=== PATIENT | female | born 1965 | race African-American/Black ===

== ENCOUNTER 2016-05-08 02:52 | Emergency (ER) | payer SELFPAY ==
[~2016-05-08] VITALS: Ht 162.6 cm; Wt 86.0 kg
[2016-05-08 03:01] VITALS: BP 156/107; PULSE 78; RESP 24; TEMP 97.7; O2SAT 100
[2016-05-08] MEDS ORDERED: SODIUM CHLOR 0.9% 1000 ML INJ 1,000 ML IV ONE (03:13)
[2016-05-08] MEDS ORDERED: SODIUM CHLORIDE 0.9% FLUSH 5 ML FLUSH IVF PRN (03:15)
[2016-05-08] MEDS ORDERED: KETOROLAC TROMETHAMINE 30 MG/ML (IVP) VIAL IVP ONE (03:15)
[2016-05-08] MEDS ORDERED: PROCHLORPERAZINE INJ 10 MG/2 ML VIAL IVP ONE (03:15)
[2016-05-08] MEDS ORDERED: diphenhydrAMINE HCL 50 MG/ML VIAL IVP ONE (03:15)
[2016-05-08 03:16] VITALS: BP 156/107; PULSE 78; RESP 18; TEMP 97.7; O2SAT 100
[2016-05-08 03:18] VITALS: RESP 18; O2SAT 100
--- NOTE | 2016-05-08 03:27 | PD ---
HPI Chief Complaint: Headache Time Seen by Provider: 03:10 Travel History International Travel<30 days: No Contact w/Intl Traveler<30days: No Traveled to known affect area: No History of Present Illness HPI The patient is a 50-year-old female with a history of recurrent migraine headaches. She complains of a headache that started 4 days ago, got better and then got worse gradually. She denies any focal neurologic change, fever but does have nausea and vomiting. She denies vomiting any blood. Her last CT scan was 2009. She does have photophobia/phonophobia. PFSH Past Medical History Diminished Hearing: No Migraines: Yes Tetanus Vaccination: Unknown Influenza Vaccination: No ?: Not Menopausal: Yes Past Surgical History Appendectomy: Yes Section: Yes Gynecologic Surgery: Yes (rso) Hysterectomy: Yes Tonsillectomy: Yes Social History Alcohol Use: Yes (SOCIALLY) Tobacco Use: No Substance Use: No Allergies-Medications (Allergen,Severity, Reaction): Coded Allergies: Morphine (Verified Allergy, Intermediate, Hives, 05/08/16) Codeine (Verified Allergy, Mild, RASH, 05/08/16) Hydrocodone (Verified Allergy, Mild, RASH, 05/08/16) Reported Meds & Prescriptions Reported Meds & Active Scripts Active No Active Prescriptions or Reported Medications Review of Systems Except as stated in HPI: all other systems reviewed are Neg Physical Exam Narrative GENERAL: Well-nourished, well-developed patient in moderate to severe distress with her headache. Her vital signs show blood pressure 156/107 with respirations 24 but the rest the vital signs are normal. SKIN: Warm and dry. No needle tracks nor wrist slash pastor are present. HEAD: Normocephalic. EYES: No scleral icterus. No injection or drainage. NECK: Supple, trachea midline. No JVD or lymphadenopathy. There is no meningismus and the patient flexes neck fully so that the chin touches chest without any hesitation. CARDIOVASCULAR: Regular rate and rhythm without murmurs, gallops, or rubs. RESPIRATORY: Breath sounds equal bilaterally. No accessory muscle use. Lungs clear to auscultation bilaterally. GASTROINTESTINAL: Abdomen soft, non-tender, nondistended. MUSCULOSKELETAL: No cyanosis, or edema. BACK: Nontender without obvious deformity. No CVA tenderness. NEUROLOGICAL: Awake and alert. Cranial nerves II through XII intact. Motor and sensory grossly within normal limits. Five out of 5 muscle strength in all muscle groups. Normal speech and gait. Data Data Last Documented VS Vital Signs Date Time Temp Pulse Resp B/P Pulse Ox O2 Delivery O2 Flow Rate FiO2 05/08/16 04:00 85 18 155/85 99 Room Air 05/08/16 03:16 97.7 Orders Complete Blood Count With Diff (05/08/16 03:13) Basic Metabolic Panel (Bmp) (05/08/16 03:13) Ecg Monitoring (05/08/16 03:13) Iv Access Insert/Monitor (05/08/16 03:13) Oximetry (05/08/16 03:13) Sodium Chloride 0.9% Flush (Ns Flush) (05/08/16 03:15) Ketorolac Inj (Toradol Inj) (05/08/16 03:15) Prochlorperazine Inj (Compazine Inj) (05/08/16 03:15) Diphenhydramine Inj (Benadryl Inj) (05/08/16 03:15) Sodium Chlor 0.9% 1000 Ml Inj (Ns 1000 M (05/08/16 03:13) Ct Brain W/O Iv Contrast(Rout) (05/08/16 03:28) Labs Laboratory Tests Test 05/08/16 03:30 White Blood Count 7.2 TH/MM3 Red Blood Count 4.81 MIL/MM3 Hemoglobin 13.6 GM/DL Hematocrit 41.5 % Mean Corpuscular Volume 86.3 FL Mean Corpuscular Hemoglobin 28.4 PG Mean Corpuscular Hemoglobin 32.9 % Concent Red Cell Distribution Width 11.9 % Platelet Count 360 TH/MM3 Mean Platelet Volume 7.4 FL Neutrophils (%) (Auto) 78.5 % Lymphocytes (%) (Auto) 16.6 % Monocytes (%) (Auto) 4.5 % Eosinophils (%) (Auto) 0.2 % Basophils (%) (Auto) 0.2 % Neutrophils # (Auto) 5.7 TH/MM3 Lymphocytes # (Auto) 1.2 TH/MM3 Monocytes # (Auto) 0.3 TH/MM3 Eosinophils # (Auto) 0.0 TH/MM3 Basophils # (Auto) 0.0 TH/MM3 CBC Comment DIFF FINAL Differential Comment Sodium Level 142 MEQ/L Potassium Level 3.5 MEQ/L Chloride Level 107 MEQ/L Carbon Dioxide Level 22.2 MEQ/L Anion Gap 13 MEQ/L Blood Urea Nitrogen 13 MG/DL Creatinine 1.10 MG/DL Estimat Glomerular Filtration 63 ML/MIN Rate Random Glucose 147 MG/DL Calcium Level 9.5 MG/DL MDM Medical Decision Making Medical Screen Exam Complete: Yes Emergency Medical Condition: Yes Medical Record Reviewed: Yes Interpretation(s) The basic metabolic profile shows a creatinine of 1.1, glucose 147 but is otherwise unremarkable. The CBC is normal. Differential Diagnosis Migraine headache, tension headache, tension/migraine combination headache, subarachnoid hemorrhageunlikely, normal pressure hydrocephalushighly unlikely Narrative Course The patient appears to have a migraine headache. Fortunately, she responded to nonnarcotic medications. The photophobia, phonophobia and severity and frequency of the headache suggest migraine headache. The CT scan did not show any abnormality. Diagnosis Primary Impression: Migraine headache Additional Instructions: The Fioricet is for when you get a future headache, take it early and sometimes this works to knock out the headache. Follow-up next week with your primary care physician. Med/Other Pt SpecificInfo: Prescription(s) given Scripts [id number]-Gipqjwth (Fioricet)50-300-40 Mg Cap1 Cap PO Q4H PRN ( HEADACHE) #30 CAP Ref 0 Prov:Chano London MD 05/08/16 Disposition: 01 DISCHARGE HOME Condition: Stable Chano London MD May 08, 2016 03:27
[2016-05-08 03:48] LABS: AUTOMATED NEUTROPHIL # 5.7 TH/MM3 (1.8-7.7); BASOPHIL % 0.2 % (0.0-2.0); EOSINOPHIL % 0.2 % (0.0-4.0); HEMATOCRIT 41.5 % (35.0-46.0); HEMO FLAGS DIFF FINAL; LYMPH % 16.6 % (9.0-44.0); LYMPHOCYTE # 1.2 TH/MM3 (1.0-4.8); MEAN CELL VOLUME 86.3 FL (80.0-100.0); MEAN CORPUSCULAR HEMOGLOBIN 28.4 PG (27.0-34.0); MEAN CORPUSCULAR HGB CONC 32.9 % (32.0-36.0); MONO % 4.5 % (0.0-8.0); NEUT % 78.5 % (16.0-70.0); PLATELET COUNT 360 TH/MM3 (150-450); RED BLOOD COUNT 4.81 MIL/MM3 (4.00-5.30); RED CELL DISTRIBUTION WIDTH 11.9 % (11.6-17.2); WHITE BLOOD COUNT 7.2 TH/MM3 (4.0-11.0)
[2016-05-08 03:55] LABS: POTASSIUM 3.5 MEQ/L (3.5-5.1)
[2016-05-08 03:58] LABS: BICARBONATE 22.2 MEQ/L (21.0-32.0)
[2016-05-08 04:00] VITALS: BP 155/85; PULSE 85; RESP 18; O2SAT 99
--- NOTE | 2016-05-08 04:08 | RADHPO ---
EXAM DATE/TIME: 05/08/2016 03:47 [facility] COMPARISON: CT BRAIN W/O CONTRAST, February 18, 2010, 23:10. INDICATIONS : Headache for four days with nausea and vomiting. RADIATION DOSE: 63.34 CTDIvol (mGy) MEDICAL HISTORY : None SURGICAL HISTORY : Tonsillectomy. ENCOUNTER: Initial ACUITY: 4 - 6 days PAIN SCALE: 8/10 LOCATION: cranial TECHNIQUE: Multiple contiguous axial images were obtained of the head. Using automated exposure control and adj ustment of the mA and/or kV according to patient size, radiation dose was kept as low as reasonably a chievable to obtain optimal diagnostic quality images. FINDINGS: No signs of intracranial hemorrhage or acute infarction. 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 No fractures. Ventricles and cisterns are of normal size and configuration. CONCLUSION: No significant change has occurred. Devon Mauro MD on May 08, 2016 at 4:06 Board Certified Radiologist. This report was verified electronically.
[2016-05-08 04:48] VITALS: BP 154/84; PULSE 82; RESP 18; O2SAT 99
[2016-05-08] MEDS ORDERED: BUTA1CAP PO (04:55)
== END 2016-05-08 05:35 | disposition home or self-care (01) ==
LOC: PHED 02:52
DX: G43.909 Migraine, unspecified, not intractable, without status migrainosus (principal)
CPT/HCPCS: 70450; 80048; 85025; 96361; 96374; 96375; 99284; J0780; J1200; J1885; J7030